=== PATIENT | female | born 1945 | race Caucasian/White ===

== ENCOUNTER → 2017-01-27 | Outpatient (CLI) | payer OTHER | END | disposition home or self-care (01) | LOC: MA 10:00 | PROC: BH02ZZZ Plain Radiography of Bilateral Breasts (ICD-10-PCS; principal; 2017-01-27) | DX: Z12.39 Encounter for other screening for malignant neoplasm of breast (principal) | CPT/HCPCS: G0202 ==

== ENCOUNTER 2019-05-11 03:08 | Emergency (ER) | payer OTHER, BC ==
[~2019-05-11] VITALS: Ht 154.9 cm; Wt 99.3 kg
[2019-05-11 04:59] VITALS: BP 123/68
== END 2019-05-11 04:59 | disposition home or self-care (01) ==
LOC: ED 03:08
DX: L50.9 Urticaria, unspecified (principal); I10 Essential (primary) hypertension; E78.00 Pure hypercholesterolemia, unspecified